=== PATIENT | female | born 1990 | race Caucasian/White ===

== ENCOUNTER 2017-07-06 17:24 | Inpatient (IN) | payer MEDICAID, OTHER ==
[2017-07-06 17:55] VITALS: BMI 34.3
[2017-07-06 19:04] LABS: BASO % 0.2 % (0.0-2.0); EOS # 0.2 K/uL (0.0-0.7); EOS % 1.6 % (0.0-4.0); HEMATOCRIT 35.7 % (34.0-47.0); LYMPH # 1.8 K/uL (1.0-4.3); LYMPH % 16.9 % (20.0-40.0); MEAN CELL VOLUME 80.9 fl (81.0-99.0); MEAN CORPUSCULAR HEMOGLOBIN 27.4 pg (27.0-31.0); MEAN CORPUSCULAR HGB CONC 33.9 g/dL (33.0-37.0); MEAN PLATELET VOLUME 8.6 fl (7.2-11.7); MONO # 0.8 K/uL (0.0-0.8); MONO % 7.3 % (0.0-10.0); NEUT # 8.1 K/uL (1.8-7.0); NRBC % 0.1 % (0.0-0.0); RED CELL DISTRIBUTION WIDTH 15.7 % (11.5-14.5); WHITE BLOOD COUNT 10.9 K/uL (4.8-10.8)
[2017-07-06] MEDS ORDERED: Ampicillin 2 GM in Sodium Chloride 0.9% 100 ML IVPB STA (20:04)
[2017-07-06] MEDS ORDERED: Lactated Ringer's 1,000 ML IV SCH (20:15)
[2017-07-07] MEDS ORDERED: AMPicillin 1 GM in Sodium Chloride 0.9% 100 ML IVPB SCH (01:00)
[2017-07-07] MEDS ORDERED: Lactated Ringer's 1,000 ML IV SCH (01:30)
--- NOTE | 2017-07-07 08:38 | OBHP ---
Datetime: 07/06/2017 18:42 IP Adm Impression: Term, intrauterine IP Chief Complaint Other: IOL IP Admit Plan: Admit to unit; Initiate labor induction protocol Admit Comment, IP Provider: CC: "IOL" HPI: 26 YO IUP 37.2 weeks (EDC 07/25/17 via LMP and U/S) with no sig PMH, presents to [facility] from clinic for IOL. Patient states that she was in clinic today where she got an ultrasound, and per the ultrasound the baby was not growing where it should be. Pt also had an ultrasound in 06/22 where she was told the baby was 2 weeks behind in growth for GA and on the ultrasound for 07/06 the baby was 3 w eeks behind. Pt has had an uncomplicated so far. +FM, -ROM, -VB. 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 Allergies: NKDA Medications: PNV PE: VS: stable, afebrile GEN: NAD Cardio: S1S2, no M/G/R Resp: clear vesicular sounds b/l Abdomen: gravid, NT, BS+ Ext: minimal edema, NT Cervix: closed/thick/ high monitor: HR: 125 with moderate variability; Category I. Assessment/Plan: 26 YO IUP at 37.2 wks GA with (EDC 07/25/17 via LMP and U/S) presents for IOL. Sapna ent is in early phase of labor. Pt is GBS pos, HIV Neg, PRP neg, blood type: A+. -Admit to Labor and Delivery -CBC/Type and Screen/RPR -Intravenous access - Monitoring -Induction with Cervidil 10mg vag -start penicillin when labor starts for GBS+ -Discussion about her condition including labor, delivery, pain management -Monitor Labor progress Natalya Jimenez, PGY I OBH ADDENDUM: pt seen _ examined by me. agree with above assessment and plan. Pelvic Type - PN: Adequate Extremities - PN: Normal Abdomen - PN: Normal Back - PN: Not Done Breast - PN: Not Done Lungs - PN: Normal Heart - PN: Normal Thyroid - PN: Normal Neurologic - PN: Normal HEENT - PN: Normal General - PN: Normal FHR - Baseline A Provider: 125 Membranes, Provider: Intact IP Hx Assessment: The History has been Reviewed and is Current EGA AdmitDate IP: 37.2 Vital Signs Provider: Reviewed IP Indication for Induction: IUGR IP Chief Complaint: Other NICHD Variability Prov Fetus A: Moderate 6-25bpm NICHD Accel Fetus A IP Provider: 15X15 FHR Category Provider Fetus A: Category I Dilatation, Provider: closed Effacement, Provider: thick Station, Provider: high Genitourinary Exam: Normal DTRs - PN: Not Done
--- NOTE | 2017-07-07 08:48 | OBADHP ---
Datetime: 07/06/2017 18:42 IP Chief Complaint Other: IOL Admit Comment, IP Provider: CC: "IOL" HPI: 26 YO IUP 37.2 weeks (EDC 07/25/17 via LMP and U/S) with no sig PMH, presents to [facility] from clinic for IOL. Patient states that she was in clinic today where she got an ultrasound, and per the ultrasound the baby was not growing where it should be. Pt also had an ultrasound in 06/22 where she was told the baby was 2 weeks behind in growth for GA and on the ultrasound for 07/06 the baby was 3 w eeks behind. Pt has had an uncomplicated so far. +FM, -ROM, -VB. 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 Allergies: NKDA Medications: PNV PE: VS: stable, afebrile GEN: NAD Cardio: S1S2, no M/G/R Resp: clear vesicular sounds b/l Abdomen: gravid, NT, BS+ Ext: minimal edema, NT Cervix: closed/thick/ high monitor: HR: 125 with moderate variability; Category I. Assessment/Plan: 26 YO IUP at 37.2 wks GA with (EDC 07/25/17 via LMP and U/S) presents for IOL. Sapna ent is in early phase of labor. Pt is GBS pos, HIV Neg, PRP neg, blood type: A+. -Admit to Labor and Delivery -CBC/Type and Screen/RPR -Intravenous access - Monitoring -Induction with Cervidil 10mg vag -start penicillin when labor starts for GBS+ -Discussion about her condition including labor, delivery, pain management -Monitor Labor progress Natalya Tony, PGY I OBH ADDENDUM: pt seen _ examined by me. agree with above assessment and plan. Pelvic Type - PN: Adequate Extremities - PN: Normal Abdomen - PN: Normal Back - PN: Not Done Breast - PN: Not Done Lungs - PN: Normal Heart - PN: Normal Thyroid - PN: Normal Neurologic - PN: Normal HEENT - PN: Normal General - PN: Normal FHR - Baseline A Provider: 125 Membranes, Provider: Intact IP Hx Assessment: The History has been Reviewed and is Current Vital Signs Provider: Reviewed IP Chief Complaint: Other NICHD Variability Prov Fetus A: Moderate 6-25bpm NICHD Accel Fetus A IP Provider: [id number] FHR Category Provider Fetus A: Category I Dilatation, Provider: closed Effacement, Provider: thick Station, Provider: high Genitourinary Exam: Normal DTRs - PN: Not Done EGA AdmitDate IP: 37.2 IP Adm Impression: Term, intrauterine IP Admit Plan: Admit to unit; Initiate labor induction protocol
--- NOTE | 2017-07-07 09:42 | OBPN ---
Datetime: 07/07/2017 09:37 IP Progress Impression: Reassuring heart rate IP Informed Consent Obtain: Vaginal Delivery; Risks, Benefits and Alternatives Discussed IP Progress Plan: Continue present management; Induction; Cervical Ripening Pool Provider: Negative Membranes, Provider: Intact FHR - Baseline A Provider: 130 Presentation-Admit: Vertex IP Progress Note Comment: OB Hospitalist on-call Sign out rec'd ... IOL for IUGR 37w She was given Cervidil and removed this AM. She was checked by [facility] no change. She feels fine A: IUP at 37w IUGR Hx GBS+ PLAN: disucssion about IOL, medications with risks/complcaitions. She understood...will start Cyto debbie 50mcg po q 4h NICHD Accel Fetus A IP Provider: 15X15 FHR Category Provider Fetus A: Category I NICHD Variability Prov Fetus A: Moderate 6-25bpm Dilatation, Provider: FT Effacement, Provider: 0 Station, Provider: high NICHD Decel Fetus A IP Provider: None Datetime: 07/06/2017 18:42 Vital Signs Provider: Reviewed
--- NOTE | 2017-07-08 07:00 | OBPN ---
Datetime: 07/08/2017 06:58 IP Progress Impression: Reassuring heart rate IP Informed Consent Obtain: Vaginal Delivery; Risks, Benefits and Alternatives Discussed IP Progress Plan: Induction FHR - Baseline A Provider: 130 Presentation-Admit: Vertex NICHD Accel Fetus A IP Provider: 15X15 FHR Category Provider Fetus A: Category I NICHD Variability Prov Fetus A: Moderate 6-25bpm Datetime: 07/08/2017 00:29 Pool Provider: Negative Membranes, Provider: Intact IP Progress Note Comment: 26 y/o F , c/o no pain VS: stable reassuring FHT PE: unremarkable A/P - continue current management - Cervidil was removed this morning -Selphee 50mcg Q4 started @ 937 - will monitor pt - case discussed with Dr. Kirby ---Savanna Barraza, PGY-1 OB Hosptialist on-call: Notified about this patinet from PGY1 Agree with note Vital Signs Provider: Reviewed; Within Normal Limits Dilatation, Provider: FT Effacement, Provider: 0 Station, Provider: high NICHD Decel Fetus A IP Provider: None
--- NOTE | 2017-07-08 07:16 | OBPN ---
Datetime: 07/08/2017 06:58 IP Progress Note Comment: Notified that she had decel last night...which recovered. Pt feels fine. [facility]. She felt occ CTX. No SROM. no VB. +FM A: IUP at 37+w/IUGR S/P Cervidil and Cytotec for IOL PLAN discussion with pt ... will start Pitocin ...she agreed
[2017-07-08] MEDS ORDERED: Oxytocin 30 units/LR 500ML 30 U/500 ML BAG IV SCH (08:30)
[2017-07-08] MEDS: Lactated Ringer's 1,000 ML IV SCH (11:00)
--- NOTE | 2017-07-09 09:24 | OBPN ---
Datetime: 07/09/2017 09:20 IP Progress Impression: Reassuring heart rate IP Procedures: Sterile Vag Exam IP Progress Plan: Continue present management Contraction Comments Provider: occasional FHR - Baseline A Provider: 120s-130s IP Progress Note Comment: Both MWB/FWB reassuring at this time. Discussed with patient possible nee d for C/S due to failed induction. All patient questions answered. Continue current management. Vital Signs Provider: Reviewed; Within Normal Limits NICHD Accel Fetus A IP Provider: 15X15 FHR Category Provider Fetus A: Category I NICHD Variability Prov Fetus A: Moderate 6-25bpm Dilatation, Provider: 1 Effacement, Provider: 0 Station, Provider: -3 NICHD Decel Fetus A IP Provider: None
[2017-07-09] MEDS ORDERED: ceFAZolin 2 GM in Sodium Chloride 0.9% 100 ML IVPB ONE (10:46)
[2017-07-09] MEDS ORDERED: Ammonia 2% Inhalant ONE (10:53)
--- NOTE | 2017-07-09 10:53 | OBPN ---
Datetime: 07/09/2017 10:50 IP Progress Impression Other: Failed induction of labor IP Informed Consent Obtain: Section Delivery; Risks, Benefits and Alternatives Discussed IP Procedures: Sterile Vag Exam IP Progress Plan: Deliver- Section IP Progress Note Comment: Pt with multiple variable decelerations. No change in cervical dilation. Discussed with patient options and recommended C/S delivery due to failed IOL. Discussed the R/B/A o f surgery with patient. All patient questions answered. Anesthesia notified.
[2017-07-09] MEDS ORDERED: Phenylephrine 10 mg/ml Inj ONE (10:55)
[2017-07-09] MEDS ORDERED: Morphine 1 mg/ml preservative-free Inj(Duramorph) ONE (10:55)
[2017-07-09] MEDS ORDERED: ePHEDrine 50 mg/ml Inj ONE (10:55)
[2017-07-09] MEDS ORDERED: Oxytocin 20 units in LR 2,000 ML IV ONE (12:10)
[2017-07-09] MEDS ORDERED: Oxytocin 30 units/LR 500ML 30 U/500 ML BAG IV SCH (12:16)
[2017-07-09] MEDS ORDERED: Oxycodone/Acetaminophen 5/325 mg Tab PO PRN (12:16)
[2017-07-09] MEDS ORDERED: Lactated Ringer's 1,000 ML IV SCH (12:30)
[2017-07-09] MEDS ORDERED: DiphenhydrAMINE 50 mg/ml Inj IVP PRN (14:33)
[2017-07-09] MEDS: Lactated Ringer's 1,000 ML IV SCH (18:29)
[2017-07-10] MEDS: Oxycodone/Acetaminophen 5/325 mg Tab PO PRN ×2 (05:45→16:22)
--- NOTE | 2017-07-10 08:27 | OBDS ---
DELIVERY PERSONNEL Delivery Doctor: Sukhwinder Petersen MD Scrub Nurse: Nazanin Franklin OBT Supervisor Fine Grading: Sara Erazo RN/ carito yeboah rn Anesthesiologist: Velia Corrigan MD Obstetrics Gynecology Md: Primo Corrigan MD MATERNAL INFORMATION Delivery Anesthesia: Spinal Medications in Delivery: pitocin Estimated Blood Loss (ml): 900 Placenta Cultured: No Other Maternal Complications: ftp iugr Provider Comments: Primary low flap transverse section. Patient delivered viable female with Apgars of 9 and 9 at one and 5 minutes respectively. N ormal uterus, normal tubes and ovaries bilaterally. Assessment loss 800 mL Fluids 1200 mL lactated Ringer's Urine output 300 mL of clear end of procedure No complications LABOR SUMMARY EDC: 07/25/2017 00:00 No. Babies in Womb: 1 Attempted: No Labor Anesthesia: None LABOR INFORMATION Cervical Ripening Agents: Cytotec @ (Annotations: 50 mcg as per md order ) Oxytocin: / cytotec Group B Beta Strep: Positive Steroids Given: None Reason Steroids Not Administered: Not Applicable MEMBRANES Rupture of Membranes: 07/09/2017 11:34 Length of Rupture (hrs): 0.00 STAGES OF LABOR Stage 3 hrs: 0 Stage 3 min: 1 CSECTION DELIVERY Primary Indication: Failed Induction Secondary Indication: Nonreassuring Status CSection Incidence: Primary Labor: No Labor Elective: Nonelective CSection Incision: Lower Uterine Transverse BABY A INFORMATION Delivery Date/Time: 07/09/2017 11:34 Method of Delivery: Born in Route : Yes : N/A Forceps: N/A Vacuum Extraction: N/A SHOULDER DYSTOCIA BABY A Delivery Date/Time: 07/09/2017 11:34 PRESENTATION/POSITION BABY A Presentation: Cephalic Cephalic Presentation: Vertex Breech Presentation: N/A PLACENTA INFORMATION BABY A Placenta Delivery Time : 07/09/2017 11:35 Placenta Method of Delivery: Manual Removal Placenta Status: Delivered SCORES BABY A Heart Rate 1 min: >100 bpm Resp Effort 1 min: Good Cry Reflex Irritability 1 min: Cough or Sneeze or Pulls Away Muscle Tone 1 min: Active Motion Color 1 min: Body [place], Extremities Blue SCORE 1 MIN: 9 Heart Rate 5 min: >100 bpm Resp Effort 5 min: Good Cry Reflex Irritability 5 min: Cough or Sneeze or Pulls Away Muscle Tone 5 min: Active Motion Color 5 min: Body [place], Extremities Blue SCORE 5 MIN: 9 Heart Rate 10 min: >100 bpm Resp Effort 10 min: Good Cry Reflex Irritability 10 min: Cough or Sneeze or Pulls Away Muscle Tone 10 min: Active Motion Color 10 min: Completely [place] SCORE 10 MIN: 10 INFORMATION BABY A Gestational Age at Delivery: 37+5 Gestational Status: Term Infant Outcome : Liveborn Condition : Stable Sex: Male IDENTIFICATION/MEDS BABY A ID Band Number: [id number] ID Band Location: Left Leg; Left Arm WEIGHT/LENGTH BABY A Infant Birthweight (gms): 2070 Infant Weight (lb): 4 Weight (oz): 9 CORD INFORMATION BABY A No. Cord Vessels: 3 Nuchal Cord : Around Neck x1, Loose Nuchal Cord Other: none True Knot: none Infant Cord pH Baby Venous: yes Cord Blood Taken: Yes Suction: Mouth; Nose ASSESSMENT BABY A Physical Findings at Delivery: Within Normal Limits Infant Respirations: Appears Normal Computer Scientist/ALS Called : Yes Care By: dr edmondson / shayla nunez rn
[2017-07-10] MEDS ORDERED: Prenatal Multivit/Folic Acid/Iron Tab PO SCH (09:00)
[2017-07-10 10:34] LABS: BASO % 0.4 % (0.0-2.0); EOS # 0.1 K/uL (0.0-0.7); EOS % 0.7 % (0.0-4.0); HEMATOCRIT 32.6 % (34.0-47.0); LYMPH # 1.9 K/uL (1.0-4.3); LYMPH % 16.9 % (20.0-40.0); MEAN CELL VOLUME 82.8 fl (81.0-99.0); MEAN CORPUSCULAR HEMOGLOBIN 26.7 pg (27.0-31.0); MEAN CORPUSCULAR HGB CONC 32.3 g/dL (33.0-37.0); MEAN PLATELET VOLUME 8.1 fl (7.2-11.7); MONO # 0.6 K/uL (0.0-0.8); MONO % 5.9 % (0.0-10.0); NEUT # 8.4 K/uL (1.8-7.0); NEUT % 76.1 % (50.0-75.0); RED CELL DISTRIBUTION WIDTH 16.2 % (11.5-14.5); WHITE BLOOD COUNT 11.1 K/uL (4.8-10.8)
[2017-07-10] MEDS: Lactated Ringer's 1,000 ML IV SCH (11:00)
--- NOTE | 2017-07-10 21:08 | OBPPN ---
Datetime: 07/10/2017 06:37 PP Pain Prov: Within normal limits PP Nausea Prov: Denies PP Flatus Prov: No PP BM Prov: No PP Heart Prov: Normal PP Lungs Prov: Normal PP Abdomen/Uterus Prov: Normal PP Lochia Prov: Normal PP CVA Tenderness Prov: Normal PP Extremities Prov: Normal PP C/S Incision Prov: Normal PP Comments Phys Exam Prov: - incision is coverd, will assess it later today PP Impression Prov: Normal progression PP Plan Prov: Continue present management PP Progress Note Prov: S: 26 yo s/p on 07/09/17 at 11:34. Pt. is seen and examined at bedside this AM. No overnight events. Pt reports mild abdominal pain, but well controlled with pain m eds. will d/c lee today, will remove dressing today as well. no nausea, advised to advance diet as tolerated. Lochia is similar to menses volume. no Bowel movement, and no passing gas per rectum. Yeison es fever/chills, diarrhea, nausea/vomiting, chest pain, dyspnea, and dizziness. O: VS: stable GEN: NAD, Cardio: s1s2, no M/G/R Resp: clear breath sounds b/l Abdomen: BS+, tenderness to palpation and incision is covered EXT: No edema, calves nontender NEURO/PSYCHI: AAOx3, no grossly focal deficit, preserved affect and mood. Assessment/Plan: 26yo s/p on 07/09/17. Pt remains afebrile, tolerating pain with med ication, doing well on PoD#1. OOB with caution SCDs for DVT prophylaxis, encouraged ambulating Percocet 5/325mg, and Ibuprofen 600mg for pain. Colace 100mg PO BID for constipation Encourage and ambulating f/u CBC post op, Tdap before d/c --- Savanna Barraza, PGY-1 OB Hospitalist note: This pt was seen and examined by me. Agree with above note. KALE LEY PP Procedures: None Vital Signs Provider PP: Reviewed; Within Normal Limits
--- NOTE | 2017-07-10 23:13 | OP ---
PROCEDURE DATE: 07/09/2017 PREOPERATIVE DIAGNOSES: Failed induction of labor, intrauterine growth restriction, persistent variable decelerations. POSTOPERATIVE DIAGNOSES: Failed induction of labor, intrauterine growth restriction, persistent variable decelerations. OPERATION PERFORMED: Primary low-flap transverse section via Pfannenstiel incision. SURGEON: Durga Petersen MD. RISK MANAGEMENT INTERN: Dr. Rodriguez. ANESTHESIOLOGIST: Dr. Corrigan. ANESTHESIA: Spinal. ESTIMATED BLOOD LOSS: 800 mL. FLUID: 1200 mL of lactated Ringer's. URINE OUTPUT: 300 mL of clear urine at the end of procedure. COMPLICATIONS: None. DESCRIPTION OF PROCEDURE: The patient was taken to the operating room, where spinal anesthesia was found to be adequate. The patient was prepped and draped in normal sterile fashion in the dorsal supine position with leftward tilt. A Pfannenstiel skin incision was made with scalpel. This was carried down through to the underlying layer of fascia with scalpel. Midline defect was made in the fascial layer with the scalpel. The fascial incision was then extended bilaterally sharply with curved Medrano scissors. The fascial layer was from the rectus muscles both bluntly and sharply with curved Medrano scissors. The rectus muscles were at the midline. The peritoneum was then identified, tented up with Denise clamps x2, entered sharply with Metzenbaum scissors. This peritoneal incision was then extended superiorly and inferiorly with good visualization of the urinary bladder. Bladder blade was inserted into the abdomen. The vesicouterine peritoneum was then identified, tented up with Denise clamps x2, entered sharply with Metzenbaum scissors. This peritoneal incision was then extended bilaterally with Metzenbaum scissors. The bladder flap was created digitally. The Neil retractors were placed over the urinary bladder. The uterus was incised with a scalpel. The uterine incision was extended bilaterally bluntly. The 's head was delivered atraumatically. Nose and mouth were suctioned with bulb suction. The remainder of the infant was delivered without complication. Again, nose and mouth were suctioned with bulb suction. Nuchal cord x1 was reduced. The cord was clamped and cut. The was handed off to waiting pediatricians. Cord gasses were collected. Cord blood was collected. The placenta was removed manually. The uterus was cleared of all clots and debris. The uterine incision was repaired with 0 Vicryl in a running, locked fashion. Second layer of the same suture was used to imbricate the first and to obtain excellent hemostasis. Reinspection of the uterine incision proved excellent hemostasis. The abdomen and pelvis were irrigated with copious amounts of warm normal saline. Reinspection of the uterine incision proved hemostasis. All instruments were removed from the patient. The peritoneal layer was closed with a running stitch of 2-0 chromic. The rectus muscle was reapproximated at the midline with a running stitch of 2-0 chromic. The facial layer was closed with a running stitch of 0 Vicryl. Subcutaneous tissue was closed with a running stitch of 3-0 plain. The skin was closed with a subcutaneous stitch of 3-0 Vicryl. The patient tolerated the procedure well. All sponge count, lap count, and needle counts were correct x2. The patient was given 2 g of Ancef just prior to beginning of the procedure. There were no complications. The patient was taken to the recovery room awake and in stable condition. Durga Petersen MD
[2017-07-11] MEDS: Oxycodone/Acetaminophen 5/325 mg Tab PO PRN ×2 (00:56→05:50)
--- NOTE | 2017-07-11 08:49 | OBPPN ---
Datetime: 07/11/2017 06:07 PP Pain Prov: Within normal limits PP Nausea Prov: Denies PP Flatus Prov: Yes PP BM Prov: Yes PP Breasts Prov: Normal PP Heart Prov: Normal PP Lungs Prov: Normal PP Abdomen/Uterus Prov: Normal PP Lochia Prov: Normal PP Vulva/Perineum Prov: Normal PP CVA Tenderness Prov: Normal PP Extremities Prov: Normal PP Impression Prov: Normal progression; Pain PP Plan Prov: Continue present management PP Progress Note Prov: S: 26 yo s/p on 07/09/17 at 11:34. Pt. is seen and examined at bedside this AM. mild abdominal pain, but controlled with pain meds. Lochia is similar to menses volu me. +BM and no issues voiding. Denies fever/chills, diarrhea, nausea/vomiting, chest pain, dyspnea, a nd dizziness. O: VS: stable GEN: NAD, Cardio: s1s2, no M/G/R Resp: clear breath sounds b/l Abdomen: BS+, incision site looks well, no exudate or erythma EXT: mild edema, calves nontender NEURO/PSYCHI: AAOx3, no grossly focal deficit, preserved affect and mood. Assessment/Plan: 26yo s/p on 07/09/17. Pt remains afebrile, POD#2 pain controlled on meds encouraged ambulating continue pain management and colace for constipation CBC post op - 10.5/32.6 Tdap 05/15/17 SCD for DVT ppx --- Savanna Barraza, PGY-1 OB Hospitalist note: This pt was seen and examined by me. Agree with above note. KALE She may want to go home later today because her baby was transferred to [facility] PP Procedures: None Vital Signs Provider PP: Reviewed; Within Normal Limits
--- NOTE | 2017-07-11 16:11 | OBDCSUM ---
Datetime: 07/11/2017 11:38 Discharged to, Provider: Home Follow up at, Provider: [facility] Disch Instr Activity: Normal activity Disch Instr Diet: Regular Discharge Instructions, Provider: Routine instructions given Discharge Diagnosis, Provider: Term Delivered Discharge Time: 07/11/2017 13:00 Follow up in weeks, Provider: 1 Week Disch Referrals: None Contraception discussed, Prov: Yes Disch Activity Restrictions: No lifting; No sexual activity; Nothing in vagina - [place], tampon s, douche
[2017-07-11 19:03] VITALS: BP 108/75; PULSE 76; RESP 20; TEMP 98.4; O2SAT 98
== END 2017-07-11 13:00 | disposition home or self-care (01) | DRG 371 ==
LOC: H.EROB2 17:24 → H.L&D 18:00 → H.OB/GYN 07-09 16:30
PROVIDERS: ADMIT Obstetrics & Gynecology; ATTEND Obstetrics & Gynecology
PROC: 4A1HXCZ Monitoring of Products of Conception, Cardiac Rate, External Approach (ICD-10-PCS; 2017-07-06)
PROC: 10D00Z1 Extraction of Products of Conception, Low, Open Approach (ICD-10-PCS; principal; 2017-07-09)
DX: O36.5930 Maternal care for other known or suspected poor fetal growth, third trimester, not applicable or unspecified (principal); K59.00 Constipation, unspecified; O76 Abnormality in fetal heart rate and rhythm complicating labor and delivery; O61.0 Failed medical induction of labor; O69.81X0 Labor and delivery complicated by cord around neck, without compression, not applicable or unspecified; Z37.0 Single live birth; O99.824 Streptococcus B carrier state complicating childbirth; Z3A.37 37 weeks gestation of pregnancy; Z82.49 Family history of ischemic heart disease and other diseases of the circulatory system